=== PATIENT | female | born 1950 | race Hispanic/Latino ===

== ENCOUNTER 2016-12-28 13:50 | Emergency (ER) | payer MEDICARE ==
[2016-12-28] MEDS ORDERED: NORCO 5/325 PO ONE (16:33)
--- NOTE | 2016-12-28 17:24 | XRay Report ---
FINAL REPORT PROCEDURE: Right rib series TECHNIQUE: Unilateral rib radiographs, 3 views of the RIGHT ribs. HISTORY: Trauma. Fell. Pain. COMPARISON: No prior studies are available for comparison. FINDINGS: No displaced rib fractures are seen. Bone density appears normal. Visualized lung georges are clear. IMPRESSION: Negative exam. No displaced rib fractures are identified.
--- NOTE | 2016-12-28 17:47 | Emergency Department Report ---
Entered by LESLEY LYNN, acting as scribe for RAJI STUBBS PA. ED Fall HPI - General Chief Complaint: Fall Stated Complaint: FALL Source: patient Mode of arrival: Ambulatory Limitations: No Limitations - History of Present Illness Initial Comments: 66 year old female with a PMHx of HTN and arthritis presents to the ED c/o right flank pain that began 2 days ago. Patient states that she fell off a ground-level porch while helping her push a lawnmower. Rates pain an 8/ 10 in severity. Denies numbness, tingling, dysuria, hematuria, headache, dizziness, SOB, chest pain, nausea, and vomiting. Denies LOC at time of fall and head injury. Patient is ambulatory using a walker, and she was brought to the ED by her . NKDA. 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 denies: headache, neck pain, numbness, weakness, chest paint, shortness of breath, abdominal pain, hematuria, lightheaded, other (dysuria, hematuria, SOB, nausea, and vomiting) - Related Data Home Medications Medication Instructions Recorded Confirmed Last Taken Aspirin EC [Aspirin Enteric Coated 81 mg PO QDAY 12/15/15 12/15/15 12/14/15 TAB] Fexofenadine/Pseudoephedrine 1 each PO DAILY 12/15/15 12/15/15 12/14/15 [Savanah-D 12 Hour Tablet] Furosemide [Furosemide] 20 mg PO DAILY 12/15/15 12/15/15 12/14/15 Latanoprost [Latanoprost] 1 drop OP QHS 12/15/15 12/15/15 12/14/15 Leflunomide [Leflunomide] 10 mg PO DAILY 12/15/15 12/15/15 12/14/15 Lisinopril [Lisinopril] 40 mg PO DAILY 12/15/15 12/15/15 12/14/15 Metoprolol Tartrate [Metoprolol 12.5 mg PO BID 12/15/15 12/15/15 12/14/15 Tartrate] Multivit-Min/Iron/Folic/Lutein 1 each PO DAILY 12/15/15 12/15/15 12/14/15 [Centrum Silver Women Tablet] Pantoprazole [Protonix] 40 mg PO QDAY 12/15/15 12/15/15 1 Week Ago Potassium Gluconate 500 mg PO DAILY 12/15/15 12/15/15 12/14/15 Pravastatin Sodium [Pravastatin 40 mg PO DAILY 12/15/15 12/15/15 12/14/15 Sodium] Prednisone [predniSONE (Cristal) ER 5 mg PO QDAY 12/15/15 12/15/15 12/14/15 TAB] Ranolazine [Ranexa] 500 mg PO BID 12/15/15 12/15/15 12/14/15 Tramadol HCl [traMADol] 50 mg PO BID 12/15/15 12/15/15 12/14/15 Valacyclovir HCl [valACYclovir] 500 mg PO DAILY 12/15/15 12/15/15 12/14/15 cycloSPORINE [Restasis 0.05%] 1 drop OP BID 12/15/15 12/15/15 12/14/15 sulfaSALAzine [Sulfasalazine] 3 each PO BID 12/15/15 12/15/15 12/14/15 Previous Rx's Medication Instructions Recorded Last Taken Type Cyclobenzaprine HCl [Flexeril 5 MG 5 mg PO QHS #20 tab 12/28/16 Unknown Rx TAB] Naproxen [Naprosyn] 500 mg PO BID #30 tablet 12/28/16 Unknown Rx Allergies Allergy/AdvReac Type Severity Reaction Status Date / Time No Known Allergies Allergy Unverified 12/15/15 09:56 ED Review of Systems Comment: All other systems reviewed and negative Constitutional: denies: chills, fever, weakness, other (tingling) Respiratory: denies: cough, orthopnea, shortness of breath, SOB with exertion, SOB at rest, stridor, wheezing Cardiovascular: denies: chest pain, palpitations, dyspnea on exertion, orthopnea , syncope Gastrointestinal: denies: abdominal pain, nausea, vomiting Genitourinary: other (right flank pain). denies: dysuria, hematuria Musculoskeletal: denies: back pain Skin: other (3 cm ecchymosis on right flank). denies: rash Neurological: denies: headache, numbness ED Past Medical Hx - Past Medical History Previous Medical History?: Yes Hx Hypertension: Yes Hx Arthritis: Yes - Surgical History Past Surgical History?: Yes Hx Breast Surgery: Yes - Social History Smoking Status: Never Smoker Substance Use Type: None - Medications Home Medications: Home Medications Medication Instructions Recorded Confirmed Last Taken Type Aspirin EC [Aspirin Enteric Coated 81 mg PO QDAY 12/15/15 12/15/15 12/14/15 History TAB] Fexofenadine/Pseudoephedrine 1 each PO DAILY 12/15/15 12/15/15 12/14/15 History [Savanah-D 12 Hour Tablet] Furosemide [Furosemide] 20 mg PO DAILY 12/15/15 12/15/15 12/14/15 History Latanoprost [Latanoprost] 1 drop OP QHS 12/15/15 12/15/15 12/14/15 History Leflunomide [Leflunomide] 10 mg PO DAILY 12/15/15 12/15/15 12/14/15 History Lisinopril [Lisinopril] 40 mg PO DAILY 12/15/15 12/15/15 12/14/15 History Metoprolol Tartrate [Metoprolol 12.5 mg PO BID 12/15/15 12/15/15 12/14/15 History Tartrate] Multivit-Min/Iron/Folic/Lutein 1 each PO DAILY 12/15/15 12/15/15 12/14/15 History [Centrum Silver Women Tablet] Pantoprazole [Protonix] 40 mg PO QDAY 12/15/15 12/15/15 1 Week Ago History Potassium Gluconate 500 mg PO DAILY 12/15/15 12/15/15 12/14/15 History Pravastatin Sodium [Pravastatin 40 mg PO DAILY 12/15/15 12/15/15 12/14/15 History Sodium] Prednisone [predniSONE (Cristal) ER 5 mg PO QDAY 12/15/15 12/15/15 12/14/15 History TAB] Ranolazine [Ranexa] 500 mg PO BID 12/15/15 12/15/15 12/14/15 History Tramadol HCl [traMADol] 50 mg PO BID 12/15/15 12/15/15 12/14/15 History Valacyclovir HCl [valACYclovir] 500 mg PO DAILY 12/15/15 12/15/15 12/14/15 History cycloSPORINE [Restasis 0.05%] 1 drop OP BID 12/15/15 12/15/15 12/14/15 History sulfaSALAzine [Sulfasalazine] 3 each PO BID 12/15/15 12/15/15 12/14/15 History Cyclobenzaprine HCl [Flexeril 5 MG 5 mg PO QHS #20 tab 12/28/16 Unknown Rx TAB] Naproxen [Naprosyn] 500 mg PO BID #30 tablet 12/28/16 Unknown Rx ED Physical Exam - General Limitations: Physical Limitation General appearance: alert, in no apparent distress - Head Head exam: Present: atraumatic, normocephalic - Eye Eye exam: Present: normal appearance, EOMI Pupils: Present: normal accommodation - ENT ENT exam: Present: normal exam, mucous membranes moist - Neck Neck exam: Present: normal inspection, full ROM. Absent: lymphadenopathy - Respiratory Respiratory exam: Present: normal lung sounds bilaterally. Absent: respiratory distress, wheezes, rales, rhonchi, stridor - Cardiovascular Cardiovascular Exam: Present: regular rate, normal rhythm. Absent: systolic murmur, diastolic murmur, rubs, gallop - GI/Abdominal GI/Abdominal exam: Present: soft, normal bowel sounds - Extremities Exam Extremities exam: Present: normal inspection, full ROM - Back Exam Back exam: Present: normal inspection, full ROM, CVA tenderness (R), other (3 cm ecchymosis on right flank area) - Neurological Exam Neurological exam: Present: alert, oriented X3 - Psychiatric Psychiatric exam: Present: normal affect, normal mood - Skin Skin exam: Present: warm, dry, intact, ecchymosis (3 cm ecchymosis on right flank area). Absent: rash ED Course Vital Signs 12/28/16 12/28/16 14:35 16:37 Temperature 97.9 F Pulse Rate 57 L Respiratory 18 18 Rate Blood Pressure 142/70 O2 Sat by Pulse 100 Oximetry ED Medical Decision Making - Radiology Data Radiology results: report reviewed, image reviewed FINAL REPORT PROCEDURE: Right rib series TECHNIQUE: Unilateral rib radiographs, 3 views of the RIGHT ribs. HISTORY: Trauma. Fell. Pain. COMPARISON: No prior studies are available for comparison. FINDINGS: No displaced rib fractures are seen. Bone density appears normal. Visualized lung georges are clear. IMPRESSION: Negative exam. No displaced rib fractures are identified. Transcribed By: FLYNN Dictated By: AIDEE PIERRE MD Electronically Authenticated By: AIDEE PIERRE MD Signed Date/Time: 12/28/16 1720 - Medical Decision Making 66-year-old female presents status post fall. ED course: Patient received a bolus of [place] for pain. Rib detail x-ray ordered. Rib detail x-ray normal no acute fracture or abnormalities. I discussed findings with patient. Discussed with patient to follow up with primary care physician. Vital signs are normal she is not in any acute distress. Discussed the patient is any worsening symptoms to return to ED. Verbalization understands and will comply to follow-up with her primary care ED Disposition Clinical Impression: Fall at home Qualifiers: Encounter type: initial encounter Qualified Code(s): W19.XXXA - Unspecified fall, initial encounter; Y92.099 - Unspecified place in other non-institutional residence as the place of occurrence of the external cause Contusion Qualifiers: Encounter type: initial encounter Contusion area: lower back Qualified Code(s) : S30.0XXA - Contusion of lower back and pelvis, initial encounter Disposition: DISCHARGED TO HOME OR SELFCARE Is pt being admited?: No Does the pt Need Aspirin: No Condition: Stable Instructions: Fall Prevention for Older Adults (ED), Contusion in Adults (ED), Fall Prevention (ED) Additional Instructions: Follow-up which her primary care physician. Take your medications as prescribed Return to ED if any new or worsening symptoms. Prescriptions: Cyclobenzaprine HCl [Flexeril 5 MG TAB] 5 mg PO QHS #20 tab Naproxen [Naprosyn] 500 mg PO BID #30 tablet Referrals: JACEY HIDALGO MD [Primary Care Provider] - 3-5 Days Forms: Accompanied Note, Work/School Release Form(ED) Time of Disposition: 16:56 This documentation as recorded by the SHANE quesada JASMINE,accurately reflects the service I personally performed and the decisions made by me,RAJI STUBBS PA.
[2016-12-28 17:58] VITALS: BP 103/62
== END 2016-12-28 17:58 | disposition home or self-care (01) ==
LOC: ED 13:50
DX: S30.0XXA Contusion of lower back and pelvis, initial encounter (principal); I10 Essential (primary) hypertension; M19.90 Unspecified osteoarthritis, unspecified site; Z79.82 Long term (current) use of aspirin; W19.XXXA Unspecified fall, initial encounter; Y93.89 Activity, other specified; Y99.9 Unspecified external cause status; Y92.099 Unspecified place in other non-institutional residence as the place of occurrence of the external cause
CPT/HCPCS: 99283

== ENCOUNTER 2017-08-02 12:48 | Inpatient (IN) | payer MEDICARE ==
[2017-08-02 13:26] LABS: Basophils % (Auto) 0.1 % (0.0-1.8); Hematocrit 37.9 % (30.3-42.9); Hemoglobin 12.4 gm/dl (10.1-14.3); Mean Corpuscular HGB Conc 33 % (30-34); Mean Corpuscular Hemoglobin 30 pg (28-32); Mean Corpuscular Volume 93 fl (79-97); Platelet Count 241 K/mm3 (140-440); Red Blood Count 4.09 M/mm3 (3.65-5.03); Red Cell Distribution Width 14.2 % (13.2-15.2); White Blood Count 16.6 K/mm3 (4.5-11.0)
[2017-08-02 13:44] LABS: Anion Gap 22 mmol/L; BUN/Creatinine Ratio 29; Blood Urea Nitrogen 47 mg/dL (7-17); Calcium 10.1 mg/dL (8.4-10.2); Carbon Dioxide 24 mmol/L (22-30); Chloride 100.5 mmol/L (98-107); Glucose 112 mg/dL (65-100); Sodium 142 mmol/L (137-145)
[2017-08-02] MEDS ORDERED: NACL 0.9% 1000 ML 1,000 ML IV ONE (22:09)
[2017-08-02 23:58] LABS: Creatine Kinase 42 units/L (30-135); Creatine Kinase MB 1.7 ng/mL (0.0-4.0)
--- NOTE | 2017-08-03 00:08 | XRay Report ---
FINAL REPORT PROCEDURE: XR CHEST ROUTINE 2V TECHNIQUE: A portable AP chest radiograph was obtained at 08/02/2017 22:39 (EST) . CPT 22110 HISTORY: CHEST PAIN COMPARISON: No prior studies are available for comparison. FINDINGS: Heart: Heart is borderline enlarged.. Mediastinum/Vessels: There is calcified plaque in the thoracic aorta.. Lungs/Pleural space: There are no infiltrates, effusions or pneumothoraces per. Bony thorax: No acute osseous abnormality. There are old healed fractures of right ribs numbers 8 and 9. Life support devices: None. IMPRESSION: No acute cardiopulmonary abnormality.
--- NOTE | 2017-08-03 02:14 | Emergency Department Report ---
ED Chest Pain HPI - General Chief Complaint: Chest Pain Stated Complaint: CHEST AND BACK PAIN Time Seen by Provider: 08/02/17 22:07 Source: patient Mode of arrival: Ambulatory Limitations: No Limitations - History of Present Illness Initial Comments: 66 YO FEMALE WITH CHIEF C/O RETROSTERNAL CHEST PAIN SINCE YESTERDAY WITH PAIN ON INSPIRATION AND ACHING 8/10 PAIN. SHE ALSO HAS PAIN IN THE LOWER BACK WHICH IS CHRONIC BUT HAD SUBSIDED BUT STARTED UP AGAIN. SHE ALSO C/O THROAT PAIN, COUGH AND FEELING S THOUGH HER THROAT WAS CLOSING. MD Complaint: chest pain -: Gradual, days(s) (1) Onset: during rest Pain Location: substernal Severity scale (0 -10): 8 Quality: aching, sharp Consistency: intermittent Improves With: nothing Worsens With: inspiration - Related Data Home Medications Medication Instructions Recorded Confirmed Last Taken Aspirin EC [Aspirin Enteric Coated 81 mg PO QDAY 12/15/15 12/15/15 12/14/15 TAB] Fexofenadine/Pseudoephedrine 1 each PO DAILY 12/15/15 12/15/15 12/14/15 [Savanah-D 12 Hour Tablet] Furosemide [Furosemide] 20 mg PO DAILY 12/15/15 12/15/15 12/14/15 Latanoprost [Latanoprost] 1 drop OP QHS 12/15/15 12/15/15 12/14/15 Leflunomide [Leflunomide] 10 mg PO DAILY 12/15/15 12/15/15 12/14/15 Lisinopril [Lisinopril] 40 mg PO DAILY 12/15/15 12/15/15 12/14/15 Metoprolol Tartrate [Metoprolol 12.5 mg PO BID 12/15/15 12/15/15 12/14/15 Tartrate] Multivit-Min/Iron/Folic/Lutein 1 each PO DAILY 12/15/15 12/15/15 12/14/15 [Centrum Silver Women Tablet] Pantoprazole [Protonix] 40 mg PO QDAY 12/15/15 12/15/15 1 Week Ago ~12/08/15 Potassium Gluconate 500 mg PO DAILY 12/15/15 12/15/15 12/14/15 Pravastatin Sodium [Pravastatin 40 mg PO DAILY 12/15/15 12/15/15 12/14/15 Sodium] Prednisone [predniSONE (Cristal) ER 5 mg PO QDAY 12/15/15 12/15/15 12/14/15 TAB] Ranolazine [Ranexa] 500 mg PO BID 12/15/15 12/15/15 12/14/15 Tramadol HCl [traMADol] 50 mg PO BID 12/15/15 12/15/15 12/14/15 Valacyclovir HCl [valACYclovir] 500 mg PO DAILY 12/15/15 12/15/15 12/14/15 cycloSPORINE [Restasis 0.05%] 1 drop OP BID 12/15/15 12/15/15 12/14/15 sulfaSALAzine [Sulfasalazine] 3 each PO BID 12/15/15 12/15/15 12/14/15 Previous Rx's Medication Instructions Recorded Last Taken Type Cyclobenzaprine HCl [Flexeril 5 MG 5 mg PO QHS #20 tab 12/28/16 Unknown Rx TAB] Naproxen [Naprosyn] 500 mg PO BID #30 tablet 12/28/16 Unknown Rx Allergies Allergy/AdvReac Type Severity Reaction Status Date / Time No Known Allergies Allergy Verified 08/02/17 13:06 Heart Score - HEART Score History: Slightly suspicious EKG: Non-specific Age: > 65 Risk factors: 1-2 risk factors Troponin: < normal limit HEART Score: 4 ED Review of Systems ROS: Stated complaint: CHEST AND BACK PAIN Other details as noted in HPI ED Past Medical Hx - Past Medical History Previous Medical History?: Yes Hx Hypertension: Yes Hx Arthritis: Yes - Surgical History Hx Breast Surgery: Yes - Social History Smoking Status: Never Smoker Substance Use Type: None - Medications Home Medications: Home Medications Medication Instructions Recorded Confirmed Last Taken Type Aspirin EC [Aspirin Enteric Coated 81 mg PO QDAY 12/15/15 12/15/15 12/14/15 History TAB] Fexofenadine/Pseudoephedrine 1 each PO DAILY 12/15/15 12/15/15 12/14/15 History [Savanah-D 12 Hour Tablet] Furosemide [Furosemide] 20 mg PO DAILY 12/15/15 12/15/15 12/14/15 History Latanoprost [Latanoprost] 1 drop OP QHS 12/15/15 12/15/15 12/14/15 History Leflunomide [Leflunomide] 10 mg PO DAILY 12/15/15 12/15/15 12/14/15 History Lisinopril [Lisinopril] 40 mg PO DAILY 12/15/15 12/15/15 12/14/15 History Metoprolol Tartrate [Metoprolol 12.5 mg PO BID 12/15/15 12/15/15 12/14/15 History Tartrate] Multivit-Min/Iron/Folic/Lutein 1 each PO DAILY 12/15/15 12/15/15 12/14/15 History [Centrum Silver Women Tablet] Pantoprazole [Protonix] 40 mg PO QDAY 12/15/15 12/15/15 1 Week Ago History ~12/08/15 Potassium Gluconate 500 mg PO DAILY 12/15/15 12/15/15 12/14/15 History Pravastatin Sodium [Pravastatin 40 mg PO DAILY 12/15/15 12/15/15 12/14/15 History Sodium] Prednisone [predniSONE (Cristal) ER 5 mg PO QDAY 12/15/15 12/15/15 12/14/15 History TAB] Ranolazine [Ranexa] 500 mg PO BID 12/15/15 12/15/15 12/14/15 History Tramadol HCl [traMADol] 50 mg PO BID 12/15/15 12/15/15 12/14/15 History Valacyclovir HCl [valACYclovir] 500 mg PO DAILY 12/15/15 12/15/15 12/14/15 History cycloSPORINE [Restasis 0.05%] 1 drop OP BID 12/15/15 12/15/15 12/14/15 History sulfaSALAzine [Sulfasalazine] 3 each PO BID 12/15/15 12/15/15 12/14/15 History Cyclobenzaprine HCl [Flexeril 5 MG 5 mg PO QHS #20 tab 12/28/16 Unknown Rx TAB] Naproxen [Naprosyn] 500 mg PO BID #30 tablet 12/28/16 Unknown Rx ED Physical Exam - General Limitations: No Limitations ED Course Vital Signs 08/02/17 08/02/17 08/02/17 13:06 16:44 17:06 Temperature 98.6 F 99.1 F Pulse Rate 90 85 Respiratory 18 18 Rate Blood Pressure 104/56 101/65 Blood Pressure [Right] O2 Sat by Pulse 100 89 Oximetry 08/02/17 08/02/17 08/02/17 17:16 17:20 17:26 Temperature Pulse Rate 72 66 70 Respiratory 20 14 16 Rate Blood Pressure 129/102 147/84 147/84 Blood Pressure [Right] O2 Sat by Pulse 96 97 96 Oximetry 08/02/17 08/02/17 08/02/17 17:30 17:36 17:40 Temperature Pulse Rate 66 65 65 Respiratory 16 15 15 Rate Blood Pressure 147/84 132/82 132/82 Blood Pressure [Right] O2 Sat by Pulse 96 97 98 Oximetry 08/02/17 08/02/17 08/02/17 17:45 17:50 17:56 Temperature Pulse Rate 69 66 69 Respiratory 18 15 13 Rate Blood Pressure 137/91 137/91 137/91 Blood Pressure [Right] O2 Sat by Pulse 94 95 96 Oximetry 08/02/17 08/02/17 08/02/17 18:00 18:06 18:10 Temperature Pulse Rate 73 72 74 Respiratory 14 17 16 Rate Blood Pressure 137/91 134/83 134/83 Blood Pressure [Right] O2 Sat by Pulse 93 95 95 Oximetry 08/02/17 08/02/17 08/02/17 18:15 18:20 20:10 Temperature Pulse Rate 75 72 80 Respiratory 19 17 24 Rate Blood Pressure 137/93 137/93 137/93 Blood Pressure [Right] O2 Sat by Pulse 97 92 93 Oximetry 08/02/17 08/02/17 08/02/17 20:15 20:21 20:25 Temperature Pulse Rate 79 79 81 Respiratory 20 21 20 Rate Blood Pressure 111/56 111/56 111/56 Blood Pressure [Right] O2 Sat by Pulse 94 93 94 Oximetry 08/02/17 08/02/17 08/02/17 20:30 20:35 20:41 Temperature Pulse Rate 83 81 81 Respiratory 20 21 21 Rate Blood Pressure 122/59 122/59 122/59 Blood Pressure [Right] O2 Sat by Pulse 95 94 94 Oximetry 08/02/17 08/02/17 08/02/17 20:45 20:51 20:55 Temperature Pulse Rate 78 78 78 Respiratory 18 19 20 Rate Blood Pressure 115/52 115/52 115/52 Blood Pressure [Right] O2 Sat by Pulse 93 94 94 Oximetry 08/02/17 08/02/17 08/02/17 21:00 21:05 21:11 Temperature Pulse Rate 78 79 82 Respiratory 19 18 23 Rate Blood Pressure 107/55 107/55 107/55 Blood Pressure [Right] O2 Sat by Pulse 93 94 94 Oximetry 08/02/17 08/02/17 08/02/17 21:13 21:14 21:15 Temperature 98.9 F Pulse Rate 82 82 Respiratory 25 H 25 H 19 Rate Blood Pressure 123/59 Blood Pressure 103/62 [Right] O2 Sat by Pulse 95 95 Oximetry 08/02/17 08/02/17 08/02/17 21:25 21:30 22:14 Temperature Pulse Rate 83 82 81 Respiratory 21 20 18 Rate Blood Pressure 122/62 122/62 Blood Pressure [Right] O2 Sat by Pulse 95 93 93 Oximetry 08/02/17 08/02/17 08/02/17 22:16 22:18 22:20 Temperature Pulse Rate 82 82 81 Respiratory 19 20 18 Rate Blood Pressure 109/58 109/58 109/58 Blood Pressure [Right] O2 Sat by Pulse 94 93 93 Oximetry 08/02/17 08/02/17 08/02/17 22:22 22:24 22:26 Temperature Pulse Rate 81 82 82 Respiratory 19 18 18 Rate Blood Pressure 109/58 109/58 109/58 Blood Pressure [Right] O2 Sat by Pulse 93 93 92 Oximetry 08/02/17 08/02/17 08/02/17 22:28 22:30 22:32 Temperature Pulse Rate 81 81 82 Respiratory 19 19 20 Rate Blood Pressure 109/58 107/56 107/56 Blood Pressure [Right] O2 Sat by Pulse 93 91 93 Oximetry 08/02/17 08/02/17 08/02/17 22:34 22:36 22:38 Temperature Pulse Rate 83 86 84 Respiratory 21 20 20 Rate Blood Pressure 107/56 107/56 107/56 Blood Pressure [Right] O2 Sat by Pulse 93 92 94 Oximetry 08/02/17 08/02/17 08/02/17 22:40 22:42 22:44 Temperature Pulse Rate 85 86 86 Respiratory 14 14 21 Rate Blood Pressure 107/56 107/56 109/58 Blood Pressure [Right] O2 Sat by Pulse 93 94 93 Oximetry 08/02/17 08/02/17 08/02/17 22:46 22:48 22:50 Temperature Pulse Rate 85 85 84 Respiratory 18 21 20 Rate Blood Pressure 109/59 109/59 109/59 Blood Pressure [Right] O2 Sat by Pulse 94 92 93 Oximetry 08/02/17 08/02/17 08/02/17 22:52 22:54 22:56 Temperature Pulse Rate 92 H 84 85 Respiratory 21 17 19 Rate Blood Pressure 109/59 109/59 109/59 Blood Pressure [Right] O2 Sat by Pulse 94 89 93 Oximetry 08/02/17 08/02/17 08/02/17 22:58 23:00 23:02 Temperature Pulse Rate 84 84 84 Respiratory 21 20 22 Rate Blood Pressure 109/59 104/45 104/45 Blood Pressure [Right] O2 Sat by Pulse 92 90 91 Oximetry 08/02/17 08/02/17 08/02/17 23:04 23:06 23:08 Temperature Pulse Rate 84 85 83 Respiratory 17 14 16 Rate Blood Pressure 104/45 104/45 104/45 Blood Pressure [Right] O2 Sat by Pulse 90 90 91 Oximetry 08/02/17 08/02/17 08/02/17 23:10 23:12 23:14 Temperature Pulse Rate 82 82 83 Respiratory 22 20 14 Rate Blood Pressure 104/45 104/45 107/56 Blood Pressure [Right] O2 Sat by Pulse 92 92 90 Oximetry 08/02/17 08/02/17 08/02/17 23:16 23:18 23:20 Temperature Pulse Rate 85 82 86 Respiratory 16 23 19 Rate Blood Pressure 112/47 112/47 112/47 Blood Pressure [Right] O2 Sat by Pulse 92 92 93 Oximetry 08/03/17 08/03/17 08/03/17 00:34 00:36 00:38 Temperature Pulse Rate 86 83 83 Respiratory 23 22 19 Rate Blood Pressure 127/67 127/67 127/67 Blood Pressure [Right] O2 Sat by Pulse 94 98 Oximetry 08/03/17 08/03/17 08/03/17 00:40 00:42 00:44 Temperature Pulse Rate 79 79 80 Respiratory 21 22 19 Rate Blood Pressure 127/67 127/67 127/67 Blood Pressure [Right] O2 Sat by Pulse 98 98 99 Oximetry 08/03/17 08/03/17 08/03/17 00:46 00:48 00:50 Temperature Pulse Rate 79 80 78 Respiratory 19 19 20 Rate Blood Pressure 127/67 127/67 127/67 Blood Pressure [Right] O2 Sat by Pulse 99 99 99 Oximetry 08/03/17 08/03/17 08/03/17 00:52 00:54 00:56 Temperature Pulse Rate 85 83 80 Respiratory 24 30 H 22 Rate Blood Pressure 127/67 127/67 127/67 Blood Pressure [Right] O2 Sat by Pulse 99 97 99 Oximetry 08/03/17 08/03/17 08/03/17 00:58 01:00 01:02 Temperature Pulse Rate 82 81 81 Respiratory 22 21 21 Rate Blood Pressure 127/67 134/66 134/66 Blood Pressure [Right] O2 Sat by Pulse 100 99 100 Oximetry 08/03/17 08/03/17 08/03/17 01:04 01:06 01:10 Temperature Pulse Rate 81 78 80 Respiratory 21 20 15 Rate Blood Pressure 134/66 134/66 112/47 Blood Pressure [Right] O2 Sat by Pulse 99 99 100 Oximetry 08/03/17 08/03/17 08/03/17 01:16 01:20 01:26 Temperature Pulse Rate 81 80 87 Respiratory 19 18 21 Rate Blood Pressure 112/47 112/47 112/47 Blood Pressure [Right] O2 Sat by Pulse 100 100 97 Oximetry 08/03/17 08/03/17 08/03/17 01:40 04:20 04:22 Temperature Pulse Rate 97 H 84 85 Respiratory 24 21 19 Rate Blood Pressure 123/70 118/62 118/62 Blood Pressure [Right] O2 Sat by Pulse 92 96 96 Oximetry 08/03/17 08/03/17 08/03/17 04:24 04:26 04:28 Temperature Pulse Rate 84 86 82 Respiratory 19 18 18 Rate Blood Pressure 118/62 118/62 118/62 Blood Pressure [Right] O2 Sat by Pulse 97 97 97 Oximetry 08/03/17 08/03/17 08/03/17 04:30 04:32 04:34 Temperature Pulse Rate 86 87 89 Respiratory 21 20 21 Rate Blood Pressure 118/62 118/62 118/62 Blood Pressure [Right] O2 Sat by Pulse 96 97 97 Oximetry 08/03/17 08/03/17 08/03/17 04:36 04:38 04:40 Temperature Pulse Rate 87 89 86 Respiratory 19 21 19 Rate Blood Pressure 118/62 118/62 126/61 Blood Pressure [Right] O2 Sat by Pulse 96 96 97 Oximetry 08/03/17 08/03/17 08/03/17 04:42 04:44 04:46 Temperature Pulse Rate 86 84 85 Respiratory 19 20 19 Rate Blood Pressure 126/61 126/61 126/61 Blood Pressure [Right] O2 Sat by Pulse 97 97 97 Oximetry 08/03/17 08/03/17 08/03/17 04:48 04:50 04:52 Temperature Pulse Rate 85 84 85 Respiratory 18 19 19 Rate Blood Pressure 126/61 126/61 126/61 Blood Pressure [Right] O2 Sat by Pulse 97 97 97 Oximetry 08/03/17 08/03/17 08/03/17 04:54 04:56 04:58 Temperature Pulse Rate 84 87 83 Respiratory 20 16 20 Rate Blood Pressure 118/62 118/62 118/62 Blood Pressure [Right] O2 Sat by Pulse 97 96 97 Oximetry 08/03/17 08/03/17 08/03/17 05:00 05:02 05:04 Temperature Pulse Rate 85 83 82 Respiratory 19 19 19 Rate Blood Pressure 132/57 132/57 132/57 Blood Pressure [Right] O2 Sat by Pulse 97 97 97 Oximetry 08/03/17 08/03/17 08/03/17 05:06 05:08 05:10 Temperature Pulse Rate 82 82 82 Respiratory 19 19 17 Rate Blood Pressure 132/57 132/57 132/57 Blood Pressure [Right] O2 Sat by Pulse 98 97 98 Oximetry 08/03/17 08/03/17 08/03/17 05:12 05:14 05:16 Temperature Pulse Rate 84 82 84 Respiratory 18 19 17 Rate Blood Pressure 132/57 132/57 132/57 Blood Pressure [Right] O2 Sat by Pulse 97 98 97 Oximetry 08/03/17 08/03/17 08/03/17 05:18 05:20 05:22 Temperature Pulse Rate 83 83 84 Respiratory 18 17 17 Rate Blood Pressure 132/57 120/57 120/57 Blood Pressure [Right] O2 Sat by Pulse 98 98 97 Oximetry 08/03/17 08/03/17 08/03/17 05:24 05:26 05:28 Temperature Pulse Rate 84 84 84 Respiratory 17 18 18 Rate Blood Pressure 120/57 120/57 120/57 Blood Pressure [Right] O2 Sat by Pulse 97 97 97 Oximetry 08/03/17 08/03/17 08/03/17 05:30 05:32 05:34 Temperature Pulse Rate 82 82 83 Respiratory 18 17 16 Rate Blood Pressure 120/57 120/57 120/57 Blood Pressure [Right] O2 Sat by Pulse 97 97 97 Oximetry 08/03/17 08/03/17 08/03/17 05:36 05:38 05:40 Temperature Pulse Rate 84 83 83 Respiratory 17 16 17 Rate Blood Pressure 120/57 120/57 116/60 Blood Pressure [Right] O2 Sat by Pulse 97 97 97 Oximetry 08/03/17 08/03/17 08/03/17 05:42 05:44 05:46 Temperature Pulse Rate 83 82 85 Respiratory 16 16 16 Rate Blood Pressure 116/60 116/60 116/60 Blood Pressure [Right] O2 Sat by Pulse 97 97 97 Oximetry 08/03/17 08/03/17 08/03/17 05:48 05:50 05:52 Temperature Pulse Rate 84 84 85 Respiratory 17 17 16 Rate Blood Pressure 116/60 116/60 116/60 Blood Pressure [Right] O2 Sat by Pulse 97 97 97 Oximetry 08/03/17 08/03/17 08/03/17 05:54 05:56 05:58 Temperature Pulse Rate 82 83 84 Respiratory 17 17 18 Rate Blood Pressure 116/60 116/60 116/60 Blood Pressure [Right] O2 Sat by Pulse 98 98 98 Oximetry ELLIOT score - Elliot Score Age > 65: (1) Yes Aspirin use within the Past 7 Days: (0) No 3 or more CAD Risk Factors: (0) No 2 or more Angina events in past 24 hrs: (0) No Known CAD with more than 50% Stenosis: (0) No Elevated Cardiac Markers: (0) No ST Deviation Greater than 0.5mm: (0) No ELLIOT Score: 1 ED Medical Decision Making - Lab Data Result diagrams: 08/02/17 13:14 08/02/17 13:14 - EKG Data -: EKG Interpreted by Ia EKG shows normal: sinus rhythm (LOW VOLTAGE IN EXTREMITY AND PRECORDIAL LEADS), axis, intervals Rate: normal - EKG Data When compared to previous EKG there are: no significant change - Radiology Data Radiology results: report reviewed (CXR:NEGATIVE) Critical care attestation.: If time is entered above; I have spent that time in minutes in the direct care of this critically ill patient, excluding procedure time. ED Disposition Clinical Impression: Chest pain Qualifiers: Chest pain type: unspecified Qualified Code(s): R07.9 - Chest pain, unspecified Disposition: 09 OP ADMIT IP TO THIS HOSP Is pt being admited?: Yes Condition: Stable Instructions: Chest Pain (ED) Referrals: PRIMARY CARE,MD [Primary Care Provider] - 3-5 Days Time of Disposition: 07:19 (CASE REVIEWED WITH SHANIA WHO WILL ADMIT HER TO THE HOSPITAL)
[2017-08-03 02:40] LABS: Bilirubin,Urine NEG (Negative); Blood,Urine NEG (Negative); Ketones,Urine 20 mg/dL (Negative); Leukocyte Esterase,Urine TR (Negative); Mucus,Urine FEW /HPF; Nitrite,Urine NEG (Negative); Urobilinogen,Urine < 2.0 mg/dL (<2.0)
[2017-08-03] MEDS ORDERED: XYLOCAINE 1% MPF 5 mL INFILTRATI ONE (04:10)
[2017-08-03] MEDS ORDERED: TORADOL IV ONE (04:11)
[2017-08-03] MEDS ORDERED: ROCEPHIN 1 GM in NACL 0.9% 20 ML IV ONE (04:30)
[2017-08-03] MEDS ORDERED: ROCEPHIN 1,000 MG in NACL 0.9% 50 ML IV NR (05:00)
[2017-08-03] MEDS ORDERED: ASPIRIN PO ONE (07:18)
--- NOTE | 2017-08-03 09:17 | Nuclear Medicine Report ---
LUNG SCAN, VENTILATION AND PERFUSION: History: Chest pain. Technique: 5mci of Tc99m MAA was infused for the perfusion images. 15mci XE 133 gas was inhaled for the ventilatory images. Correlation is made with a chest x-ray dated 08/02/17 at 2327 hrs. Findings: Inhalation of Xenon gas demonstrates a normal distribution of the activity throughout both lungs. The wash out phases show no focal retention of activity. After injection of Technetium 99m macroaggregated albumin gamma camera imaging of the lungs in multiple projections demonstrates normal pulmonary contours with a homogeneous distribution of activity. No focal areas of perfusion deficiency are identified. IMPRESSION: Low probability for pulmonary embolus.
[2017-08-03] MEDS ORDERED: CEPACOL X STRENGTH MM PRN (10:16)
--- NOTE | 2017-08-03 10:17 | History and Physical Report ---
<SHANIA DURAND - Last Filed: 08/03/17 15:16> History of Present Illness Date of examination: 08/03/17 Date of admission: 08/03/17 08:12 Chief complaint: Chest pain, cough and sore throat History of present illness: Patient is a 66 years old female with past medical history of hypertension and arthritis, who presents to emergency department for chief complaints of chest pain, cough and sore throat. She states that the pain began 4 days ago intermittent retrosternal chest pain with inspiration, coughing and sore throat. Patient described the pain as, sharp, pressure and tightness in his chest; that radiates to the back. The sharp pain lasted around 3 seconds. Coughing aggravate the pain and alleviate by rest. The painful episodes did not increase in intensity or severity during this time. Patient denies chest pain at present time. She denies nausea, vomiting during these episodes of pain. She experienced shortness of breath and diaphoresis during these episodes of pain. She continued to have several episodes of the pain throughout the morning, she decided to come to the emergency department. Past History Past Medical History: hypertension, other (arthritis,) Past Surgical History: No surgical history, Other Social history: denies: smoking, alcohol abuse Family history: hypertension Medications and Allergies Allergies Allergy/AdvReac Type Severity Reaction Status Date / Time No Known Allergies Allergy Verified 08/02/17 13:06 Home Medications Medication Instructions Recorded Confirmed Last Taken Type Aspirin EC [Aspirin Enteric Coated 81 mg PO QDAY 12/15/15 08/03/17 12/14/15 History TAB] Fexofenadine/Pseudoephedrine 1 each PO DAILY 12/15/15 08/03/17 12/14/15 History [Savanah-D 12 Hour Tablet] Furosemide [Furosemide] 20 mg PO DAILY 12/15/15 08/03/17 12/14/15 History Lisinopril [Lisinopril] 20 mg PO DAILY 12/15/15 08/03/17 12/14/15 History Metoprolol Tartrate [Metoprolol 12.5 mg PO BID 12/15/15 08/03/17 12/14/15 History Tartrate] Multivit-Min/Iron/Folic/Lutein 1 each PO DAILY 12/15/15 08/03/17 12/14/15 History [Centrum Silver Women Tablet] Pantoprazole [Protonix] 40 mg PO QDAY 12/15/15 08/03/17 1 Week Ago History ~12/08/15 Potassium Gluconate 500 mg PO DAILY 12/15/15 08/03/17 12/14/15 History Ranolazine [Ranexa] 500 mg PO BID 12/15/15 08/03/17 12/14/15 History cycloSPORINE [Restasis 0.05%] 1 drop OP BID 12/15/15 08/03/17 12/14/15 History Active Meds: Active Medications Aspirin (Aspirin) 325 mg PO QDAY [facility] Furosemide (Lasix) 20 mg PO DAILY [facility] Heparin Sodium (Porcine) (Heparin) 5,000 unit SUB-Q Q12HR [facility] Ceftriaxone Sodium 1 gm/ (Sodium Chloride) 20 mls @ 20 mls/10 min IV Q24HR [facility] PRN Reason: Protocol Lisinopril (Zestril) 20 mg PO DAILY [facility] Metoprolol Tartrate (Lopressor) 12.5 mg PO BID [facility] Miscellaneous Medication (Cyclosporine [Restasis 0.05%]) 1 drop OP BID [facility] Miscellaneous Medication (Fexofenadine/Pseudoephedrine [Savanah-D 12 Hour Tablet ]) 1 each PO DAILY [facility] Miscellaneous Medication (Multivit-Min/Iron/Folic/Lutein [Centrum Silver Women Tablet]) 1 each PO DAILY [facility] Miscellaneous Medication (Potassium Gluconate [Potassium Gluconate]) 500 mg PO DAILY [facility] Pantoprazole Sodium (Protonix) 40 mg PO QDAY [facility] Ranolazine (Ranexa Er) 500 mg PO BID [facility] Review of Systems Constitutional: weakness, malaise, no weight loss, no weight gain, no fever, no chills Ears, nose, mouth and throat: no nasal congestion, no nasal discharge Cardiovascular: chest pain, shortness of breath, no dyspnea on exertion, no paroxysmal nocturnal dyspnea Respiratory: shortness of breath, dyspnea on exertion Gastrointestinal: no nausea, no vomiting, no diarrhea Genitourinary Female: no pelvic pain, no flank pain, no menorrhagia Rectal: no incontinence, no bleeding Musculoskeletal: no shooting arm pain, no arm numbness/tingling, no low back pain Integumentary: no redness, no sores, no wounds Neurological: no parathesias, no numbness, no tingling, no seizures Psychiatric: no insomnia, no hypersomnia, no change in appetite, no change in libido Endocrine: no polydipsia, no polyuria, no nocturia Hematologic/Lymphatic: no easy bruising, no easy bleeding Allergic/Immunologic: no urticaria, no allergic rhinitis Exam - Constitutional Vitals: Temp Pulse Resp BP Pulse Ox 98.0 F 90 14 126/60 95 08/03/17 07:09 08/03/17 07:46 08/03/17 07:46 08/03/17 08:00 08/03/17 07:46 General appearance: Present: no acute distress - EENT Eyes: Present: PERRL ENT: hearing intact, other (sore throat) - Neck Neck: Present: supple, other - Respiratory Respiratory effort: normal Respiratory: bilateral: CTA - Cardiovascular Rhythm: regular Heart Sounds: Present: S1 & S2 - Abdominal General gastrointestinal: Present: soft, non-tender - Integumentary Integumentary: Present: clear, warm, dry - Musculoskeletal Musculoskeletal: strength equal bilaterally - Psychiatric Psychiatric: appropriate mood/affect - Neurologic Neurologic: moves all extremities - Allied Health Allied health notes reviewed: nursing Results - Labs CBC & Chem 7: 08/02/17 13:14 08/02/17 13:14 Labs: Laboratory Last Values WBC 16.6 K/mm3 (4.5-11.0) H 08/02/17 13:14 RBC 4.09 M/mm3 (3.65-5.03) 08/02/17 13:14 Hgb 12.4 gm/dl (10.1-14.3) 08/02/17 13:14 Hct 37.9 % (30.3-42.9) 08/02/17 13:14 MCV 93 fl (79-97) 08/02/17 13:14 MCH 30 pg (28-32) 08/02/17 13:14 MCHC 33 % (30-34) 08/02/17 13:14 RDW 14.2 % (13.2-15.2) 08/02/17 13:14 Plt Count 241 K/mm3 (140-440) 08/02/17 13:14 Lymph % (Auto) 5.1 % (13.4-35.0) L 08/02/17 13:14 Sampson % (Auto) 8.2 % (0.0-7.3) H 08/02/17 13:14 Eos % (Auto) 0.0 % (0.0-4.3) 08/02/17 13:14 Baso % (Auto) 0.1 % (0.0-1.8) 08/02/17 13:14 Lymph # 0.8 K/mm3 (1.2-5.4) L 08/02/17 13:14 Sampson # 1.4 K/mm3 (0.0-0.8) H 08/02/17 13:14 Eos # 0.0 K/mm3 (0.0-0.4) 08/02/17 13:14 Baso # 0.0 K/mm3 (0.0-0.1) 08/02/17 13:14 Seg Neutrophils % 86.6 % (40.0-70.0) H 08/02/17 13:14 Seg Neutrophils # 14.4 K/mm3 (1.8-7.7) H 08/02/17 13:14 D-Dimer 487.01 ng/mlDDU (0-234) H 08/02/17 22:40 Sodium 142 mmol/L (137-145) 08/02/17 13:14 Potassium 4.0 mmol/L (3.6-5.0) 08/02/17 13:14 Chloride 100.5 mmol/L (98-107) 08/02/17 13:14 Carbon Dioxide 24 mmol/L (22-30) 08/02/17 13:14 Anion Gap 22 mmol/L 08/02/17 13:14 BUN 47 mg/dL (7-17) H 08/02/17 13:14 Creatinine 1.6 mg/dL (0.7-1.2) H 08/02/17 13:14 Estimated GFR 32 ml/min 08/02/17 13:14 BUN/Creatinine Ratio 29 % 08/02/17 13:14 Glucose 112 mg/dL (65-100) H 08/02/17 13:14 Calcium 10.1 mg/dL (8.4-10.2) 08/02/17 13:14 Total Creatine Kinase 42 units/L (30-135) 08/02/17 22:40 CK-MB (CK-2) 1.7 ng/mL (0.0-4.0) 08/02/17 22:40 CK-MB (CK-2) Rel Index 4.0 (0-4) 08/02/17 22:40 Troponin T < 0.010 ng/mL (0.00-0.029) 08/02/17 22:40 NT-Pro-B Natriuret Pep 193.3 pg/mL (0-900) 08/02/17 22:40 Urine Color Yellow (Yellow) 08/03/17 01:44 Urine Turbidity Clear (Clear) 08/03/17 01:44 Urine pH 5.0 (5.0-7.0) 08/03/17 01:44 Ur Specific [place] 1.023 (1.003-1.030) 08/03/17 01:44 Urine Protein 100 mg/dl mg/dL (Negative) 08/03/17 01:44 Urine Glucose (UA) Neg mg/dL (Negative) 08/03/17 01:44 Urine Ketones 20 mg/dL (Negative) 08/03/17 01:44 Urine Blood Neg (Negative) 08/03/17 01:44 Urine Nitrite Neg (Negative) 08/03/17 01:44 Urine Bilirubin Neg (Negative) 08/03/17 01:44 Urine Urobilinogen < 2.0 mg/dL (<2.0) 08/03/17 01:44 Ur Leukocyte Esterase Tr (Negative) 08/03/17 01:44 Urine WBC (Auto) 21.0 /HPF (0.0-6.0) H 08/03/17 01:44 Urine RBC (Auto) 3.0 /HPF (0.0-6.0) 08/03/17 01:44 U Epithel Cells (Auto) < 1.0 /HPF (0-13.0) 08/03/17 01:44 Hyaline Casts 18 /LPF 08/03/17 01:44 Urine Mucus Few /HPF 08/03/17 01:44 - Imaging and Cardiology Abdominal x-ray: image reviewed (unremarkable ) Assessment and Plan Assessment and plan: Patient is a 66 years old female with past medical history of hypertension and arthritis, who presents to emergency department for chief complaints of chest pain, cough and sore throat. She states that the pain began 4 days ago intermittent retrosternal chest pain with inspiration, coughing and sore throat. Chest Pain We will admit to telemetry floor. Most likely due to upper respiratory infection PE rule out negative VQ scan . EKG normal sinus rhythm no ST elevation or T-wave inversion. Negative cardiac enzyme X3 Start on aspirin/ Lipitor Nitroglycerin when necessary Morphine ordered for pain Stress test ordered. Acute renal failure/vasomotor nephropathy IV fluid Hydration if renal function not improve with fluid we will consider nephrology Repeat BMP Sepsis due to Urinary tract infection Blood cultures and Urine collected prior to antibiotic Initiated empiric IV Rocephin IV fluid hydration Hypertension Resume home antihypertensive medication IV hydralazine for SBP>160 Closely monitor blood pressure Upper respiratory infection Negative strep throat Sore throat Given Cepacol IV antibiotic Supportive care Elevated D-dimer VQ scan no evidence of PE We will Obtain LE doppler DVT prophylaxis Lovenox Advance Directives: Yes VTE prophylaxis?: Chemical Contraindication Mechanical VTE Prophylaxis: Treatment Not Indicated Plan of care discussed with patient/family: Yes <INOCENCIA GALEANO R - Last Filed: 08/03/17 15:29> History of Present Illness Date of admission: 08/03/17 08:12 Medications and Allergies Active Meds: Active Medications Aspirin (Aspirin) 325 mg PO QDAY [facility] Atorvastatin Calcium (Lipitor) 10 mg PO QHS [facility] Benzocaine/Menthol (Cepacol X Strength) 1 each MM Q2HR PRN PRN Reason: Sore Throat Furosemide (Lasix) 20 mg PO QAM [facility] Heparin Sodium (Porcine) (Heparin) 5,000 unit SUB-Q Q12HR [facility] Ceftriaxone Sodium 1 gm/ (Sodium Chloride) 20 mls @ 20 mls/10 min IV Q24HR [facility] PRN Reason: Protocol Sodium Chloride (Nacl 0.9% 1000 Ml) 1,000 mls @ 100 mls/hr IV DIRECT [facility] Lisinopril (Zestril) 20 mg PO DAILY [facility] Metoprolol Tartrate (Lopressor) 12.5 mg PO BID [facility] Miscellaneous Medication (Cyclosporine [Restasis 0.05%]) 1 drop OP BID [facility] Miscellaneous Medication (Fexofenadine/Pseudoephedrine [Savanah-D 12 Hour Tablet ]) 1 each PO DAILY [facility] Miscellaneous Medication (Potassium Gluconate [Potassium Gluconate]) 500 mg PO DAILY [facility] Pantoprazole Sodium (Protonix) 40 mg PO QDAY [facility] Ranolazine (Ranexa Er) 500 mg PO BID [facility] Exam - Constitutional Vitals: Temp Pulse Resp BP Pulse Ox 98.3 F 83 20 140/59 93 08/03/17 14:56 08/03/17 14:40 08/03/17 14:40 08/03/17 14:40 08/03/17 14:40 Results - Labs CBC & Chem 7: 08/02/17 13:14 08/02/17 13:14 Labs: Laboratory Last Values WBC 16.6 K/mm3 (4.5-11.0) H 08/02/17 13:14 RBC 4.09 M/mm3 (3.65-5.03) 08/02/17 13:14 Hgb 12.4 gm/dl (10.1-14.3) 08/02/17 13:14 Hct 37.9 % (30.3-42.9) 08/02/17 13:14 MCV 93 fl (79-97) 08/02/17 13:14 MCH 30 pg (28-32) 08/02/17 13:14 MCHC 33 % (30-34) 08/02/17 13:14 RDW 14.2 % (13.2-15.2) 08/02/17 13:14 Plt Count 241 K/mm3 (140-440) 08/02/17 13:14 Lymph % (Auto) 5.1 % (13.4-35.0) L 08/02/17 13:14 Sampson % (Auto) 8.2 % (0.0-7.3) H 08/02/17 13:14 Eos % (Auto) 0.0 % (0.0-4.3) 08/02/17 13:14 Baso % (Auto) 0.1 % (0.0-1.8) 08/02/17 13:14 Lymph # 0.8 K/mm3 (1.2-5.4) L 08/02/17 13:14 Sampson # 1.4 K/mm3 (0.0-0.8) H 08/02/17 13:14 Eos # 0.0 K/mm3 (0.0-0.4) 08/02/17 13:14 Baso # 0.0 K/mm3 (0.0-0.1) 08/02/17 13:14 Seg Neutrophils % 86.6 % (40.0-70.0) H 08/02/17 13:14 Seg Neutrophils # 14.4 K/mm3 (1.8-7.7) H 08/02/17 13:14 D-Dimer 487.01 ng/mlDDU (0-234) H 08/02/17 22:40 Sodium 142 mmol/L (137-145) 08/02/17 13:14 Potassium 4.0 mmol/L (3.6-5.0) 08/02/17 13:14 Chloride 100.5 mmol/L (98-107) 08/02/17 13:14 Carbon Dioxide 24 mmol/L (22-30) 08/02/17 13:14 Anion Gap 22 mmol/L 08/02/17 13:14 BUN 47 mg/dL (7-17) H 08/02/17 13:14 Creatinine 1.6 mg/dL (0.7-1.2) H 08/02/17 13:14 Estimated GFR 32 ml/min 08/02/17 13:14 BUN/Creatinine Ratio 29 % 08/02/17 13:14 Glucose 112 mg/dL (65-100) H 08/02/17 13:14 Calcium 10.1 mg/dL (8.4-10.2) 08/02/17 13:14 Total Creatine Kinase 42 units/L (30-135) 08/02/17 22:40 CK-MB (CK-2) 1.7 ng/mL (0.0-4.0) 08/02/17 22:40 CK-MB (CK-2) Rel Index 4.0 (0-4) 08/02/17 22:40 Troponin T < 0.010 ng/mL (0.00-0.029) 08/02/17 22:40 NT-Pro-B Natriuret Pep 193.3 pg/mL (0-900) 08/02/17 22:40 Urine Color Yellow (Yellow) 08/03/17 01:44 Urine Turbidity Clear (Clear) 08/03/17 01:44 Urine pH 5.0 (5.0-7.0) 08/03/17 01:44 Ur Specific [place] 1.023 (1.003-1.030) 08/03/17 01:44 Urine Protein 100 mg/dl mg/dL (Negative) 08/03/17 01:44 Urine Glucose (UA) Neg mg/dL (Negative) 08/03/17 01:44 Urine Ketones 20 mg/dL (Negative) 08/03/17 01:44 Urine Blood Neg (Negative) 08/03/17 01:44 Urine Nitrite Neg (Negative) 08/03/17 01:44 Urine Bilirubin Neg (Negative) 08/03/17 01:44 Urine Urobilinogen < 2.0 mg/dL (<2.0) 08/03/17 01:44 Ur Leukocyte Esterase Tr (Negative) 08/03/17 01:44 Urine WBC (Auto) 21.0 /HPF (0.0-6.0) H 08/03/17 01:44 Urine RBC (Auto) 3.0 /HPF (0.0-6.0) 08/03/17 01:44 U Epithel Cells (Auto) < 1.0 /HPF (0-13.0) 08/03/17 01:44 Hyaline Casts 18 /LPF 08/03/17 01:44 Urine Mucus Few /HPF 08/03/17 01:44 Assessment and Plan Assessment and plan: I saw and evaluated the patient. I agree with the findings and the plan of care as documented in the Nurse Practitioner's~note, with the following corrections and additions.
[2017-08-03] MEDS: TYLENOL PO PRN (17:55)
[2017-08-03] MEDS: LOPRESSOR PO SCH (21:41)
[2017-08-03] MEDS: RANEXA ER PO SCH (21:41)
[2017-08-03] MEDS: NACL 0.9% 1000 ML 1,000 ML IV SCH (21:42)
[2017-08-03] MEDS ORDERED: NON-FORMULARY (Cyclosporine [Restasis 0.05%] 1 DROP) OP SCH (22:00)
[2017-08-04 09:05] LABS: Hematocrit 31.6 % (30.3-42.9); Hemoglobin 10.9 gm/dl (10.1-14.3); Mean Corpuscular HGB Conc 34 % (30-34); Mean Corpuscular Hemoglobin 32 pg (28-32); Mean Corpuscular Volume 94 fl (79-97); Platelet Count 203 K/mm3 (140-440); Red Blood Count 3.38 M/mm3 (3.65-5.03); Red Cell Distribution Width 13.9 % (13.2-15.2); White Blood Count 8.4 K/mm3 (4.5-11.0)
[2017-08-04 09:22] LABS: Anion Gap 14 mmol/L; BUN/Creatinine Ratio 40; Blood Urea Nitrogen 24 mg/dL (7-17); Carbon Dioxide 26 mmol/L (22-30); Chloride 103.6 mmol/L (98-107); Glucose 94 mg/dL (65-100); Potassium 3.7 mmol/L (3.6-5.0); Sodium 140 mmol/L (137-145)
[2017-08-04] MEDS ORDERED: NON-FORMULARY (Multivit-Min/Iron/Folic/Lutein [Centrum Silver Women Tablet] 1 EACH) PO SCH (10:00)
[2017-08-04] MEDS ORDERED: POTASSIUM GLUCONATE 500 MG PO SCH (10:00)
[2017-08-04] MEDS ORDERED: FEXOFENADINE PO SCH (10:00)
[2017-08-04] MEDS ORDERED: PSEUDOEPHEDRINE PO SCH (10:00)
[2017-08-04] MEDS ORDERED: LASIX PO SCH (10:00)
[2017-08-04] MEDS: NACL 0.9% 1000 ML 1,000 ML IV SCH (10:56)
[2017-08-04] MEDS: HEPARIN SUB-Q SCH ×2 (10:57→21:50)
[2017-08-04] MEDS: ZESTRIL PO SCH (10:58)
[2017-08-04] MEDS: ASPIRIN PO SCH (10:58)
[2017-08-04] MEDS: PROTONIX PO SCH (10:58)
[2017-08-04] MEDS: RANEXA ER PO SCH ×2 (10:58→21:47)
[2017-08-04] MEDS: LOPRESSOR PO SCH ×2 (10:59→21:47)
[2017-08-04] MEDS: LASIX PO SCH (10:59)
[2017-08-04] MEDS: TYLENOL PO PRN ×2 (10:59→20:09)
[2017-08-04] MEDS: cefTRIAXone 1 GM in NACL 0.9% 20 ML IV SCH (11:09)
--- NOTE | 2017-08-04 15:06 | Progress Note ---
Assessment and Plan Assessment and plan: Patient is a 66 years old female with past medical history of hypertension and arthritis, who presents to emergency department for chief complaints of chest pain, cough and sore throat. She states that the pain began 4 days ago intermittent retrosternal chest pain with inspiration, coughing and sore throat. Chest Pain We will admit to telemetry floor. Most likely due to upper respiratory infection PE rule out negative VQ scan . EKG normal sinus rhythm no ST elevation or T-wave inversion. Negative cardiac enzyme X3 Start on aspirin/ Lipitor Nitroglycerin when necessary Morphine ordered for pain Stress test ordered. Acute renal failure/vasomotor nephropathy IV fluid Hydration improved renal function, now normal 1.6 to 0.6 Sepsis due to Urinary tract infection Blood cultures and Urine collected prior to antibiotic Initiated empiric IV Rocephin IV fluid hydration Hypertension Resume home antihypertensive medication IV hydralazine for SBP>160 Closely monitor blood pressure Upper respiratory infection Negative strep throat Sore throat Given Cepacol IV antibiotic Supportive care Elevated D-dimer VQ scan no evidence of PE DVT prophylaxis Lovenox stress test delayed due to v/q scan, History Interval history: Follow up cp which has improved. No sob, she wants to go home. Hospitalist Physical - Physical exam Narrative exam: gen: wdwn nad a/o 3 heent: eomi, op clear cvs: rrr normal s1s2 lungs/resp: cta b abd: soft ntnd gbs msk: from x 4 ext: no c/c/e neuro: cn 2-12 grossly intact - Constitutional Vitals: Temp Pulse Resp BP Pulse Ox 98.2 F 73 18 157/71 96 08/04/17 04:19 08/04/17 10:59 08/04/17 04:19 08/04/17 10:59 08/04/17 11:35 General appearance: Present: no acute distress Results - Labs CBC & Chem 7: 08/04/17 08:50 08/04/17 08:50 Labs: Laboratory Last Values WBC 8.4 K/mm3 (4.5-11.0) 08/04/17 08:50 RBC 3.38 M/mm3 (3.65-5.03) L 08/04/17 08:50 Hgb 10.9 gm/dl (10.1-14.3) 08/04/17 08:50 Hct 31.6 % (30.3-42.9) D 08/04/17 08:50 MCV 94 fl (79-97) 08/04/17 08:50 MCH 32 pg (28-32) 08/04/17 08:50 MCHC 34 % (30-34) 08/04/17 08:50 RDW 13.9 % (13.2-15.2) 08/04/17 08:50 Plt Count 203 K/mm3 (140-440) 08/04/17 08:50 Lymph % (Auto) 5.1 % (13.4-35.0) L 08/02/17 13:14 [place] % (Auto) 8.2 % (0.0-7.3) H 08/02/17 13:14 Eos % (Auto) 0.0 % (0.0-4.3) 08/02/17 13:14 Baso % (Auto) 0.1 % (0.0-1.8) 08/02/17 13:14 Lymph # 0.8 K/mm3 (1.2-5.4) L 08/02/17 13:14 [place] # 1.4 K/mm3 (0.0-0.8) H 08/02/17 13:14 Eos # 0.0 K/mm3 (0.0-0.4) 08/02/17 13:14 Baso # 0.0 K/mm3 (0.0-0.1) 08/02/17 13:14 Seg Neutrophils % 86.6 % (40.0-70.0) H 08/02/17 13:14 Seg Neutrophils # 14.4 K/mm3 (1.8-7.7) H 08/02/17 13:14 D-Dimer 487.01 ng/mlDDU (0-234) H 08/02/17 22:40 Sodium 140 mmol/L (137-145) 08/04/17 08:50 Potassium 3.7 mmol/L (3.6-5.0) 08/04/17 08:50 Chloride 103.6 mmol/L (98-107) 08/04/17 08:50 Carbon Dioxide 26 mmol/L (22-30) 08/04/17 08:50 Anion Gap 14 mmol/L 08/04/17 08:50 BUN 24 mg/dL (7-17) H 08/04/17 08:50 Creatinine 0.6 mg/dL (0.7-1.2) L D 08/04/17 08:50 Estimated GFR > 60 ml/min 08/04/17 08:50 BUN/Creatinine Ratio 40 % 08/04/17 08:50 Glucose 94 mg/dL (65-100) 08/04/17 08:50 Calcium 9.0 mg/dL (8.4-10.2) 08/04/17 08:50 Total Creatine Kinase 42 units/L (30-135) 08/02/17 22:40 CK-MB (CK-2) 1.7 ng/mL (0.0-4.0) 08/02/17 22:40 CK-MB (CK-2) Rel Index 4.0 (0-4) 08/02/17 22:40 Troponin T < 0.010 ng/mL (0.00-0.029) 08/02/17 22:40 NT-Pro-B Natriuret Pep 193.3 pg/mL (0-900) 08/02/17 22:40 Urine Color Yellow (Yellow) 08/03/17 01:44 Urine Turbidity Clear (Clear) 08/03/17 01:44 Urine pH 5.0 (5.0-7.0) 08/03/17 01:44 Ur Specific [place] 1.023 (1.003-1.030) 08/03/17 01:44 Urine Protein 100 mg/dl mg/dL (Negative) 08/03/17 01:44 Urine Glucose (UA) Neg mg/dL (Negative) 08/03/17 01:44 Urine Ketones 20 mg/dL (Negative) 08/03/17 01:44 Urine Blood Neg (Negative) 08/03/17 01:44 Urine Nitrite Neg (Negative) 08/03/17 01:44 Urine Bilirubin Neg (Negative) 08/03/17 01:44 Urine Urobilinogen < 2.0 mg/dL (<2.0) 08/03/17 01:44 Ur Leukocyte Esterase Tr (Negative) 08/03/17 01:44 Urine WBC (Auto) 21.0 /HPF (0.0-6.0) H 08/03/17 01:44 Urine RBC (Auto) 3.0 /HPF (0.0-6.0) 08/03/17 01:44 U Epithel Cells (Auto) < 1.0 /HPF (0-13.0) 08/03/17 01:44 Hyaline Casts 18 /LPF 08/03/17 01:44 Urine Mucus Few /HPF 08/03/17 01:44
[2017-08-04] MEDS: CLARITIN-D 24HR PO SCH (15:54)
[2017-08-05] MEDS: NACL 0.9% 1000 ML 1,000 ML IV SCH (02:20)
[2017-08-05] MEDS: TYLENOL PO PRN (02:20)
[2017-08-05] MEDS ORDERED: LEXISCAN IV ONE (08:17)
--- NOTE | 2017-08-05 09:46 | Treadmill Report ---
LEXISCAN STRESS TEST REASON FOR STUDY: Chest pain. STRESS TEST PROTOCOL: The patient received 0.4 mg of Lexiscan intravenously over 10 seconds. Technetium-99m tetrofosmin was subsequently injected. Baseline EKG, normal sinus rhythm with incomplete right bundle-branch block. Lexiscan EKG, no diagnostic ischemic changes. No chest pain. No arrhythmias. IMPRESSION: Electrocardiographically negative stress test. Nuclear imaging report to follow. JOB# [id number] AGO/NTS
--- NOTE | 2017-08-05 11:08 | Cat Scan Report ---
CT HEAD WITHOUT CONTRAST: HISTORY: Head trauma, pain. TECHNIQUE: Sequential 2.5mm CT images. COMPARISON: none. FINDINGS: Cerebral Parenchyma: Within normal limits. Cerebellum: Surgical changes in the left side of the posterior fossa are noted, correlate with history. No acute process noted. Brainstem: Within normal limits. Ventricles: Normal. Sella: Normal. Extra-axial spaces: Normal. Basal Cisterns: Normal. Intracranial Hemorrhage: None. Midline Shift: None. Calvarium: Normal. Sinuses: Normal. Mastoid Air Cells: Normal. Visualized Orbits: Normal. IMPRESSION: Cranial CT scan within normal limits.
--- NOTE | 2017-08-05 11:09 | Cat Scan Report ---
CT SCAN OF THE CERVICAL SPINE: HISTORY: Fall, trauma. TECHNIQUE: Contiguous 1.25 mm axial images of the cervical spine were obtained. Sagittal and coronal reformatted images. FINDINGS: There is normal alignment of the cervical spine. The body, pedicles and posterior ligaments are intact. No evidence of fracture or subluxation is seen. Moderate degenerative changes are identified at C5-6 and C6-7. The spinal canal appears normal. The prevertebral soft tissues appear normal. IMPRESSION: Cervical spondylosis. No acute process is noted.
[2017-08-05] MEDS: LASIX PO SCH (11:17)
[2017-08-05] MEDS: CLARITIN-D 24HR PO SCH (11:17)
[2017-08-05] MEDS: LOPRESSOR PO SCH (11:18)
[2017-08-05] MEDS: RANEXA ER PO SCH (11:19)
[2017-08-05] MEDS: ASPIRIN PO SCH (11:19)
[2017-08-05] MEDS: PROTONIX PO SCH (11:19)
[2017-08-05] MEDS: ZESTRIL PO SCH (11:20)
[2017-08-05] MEDS: HEPARIN SUB-Q SCH (11:20)
[2017-08-05] MEDS: cefTRIAXone 1 GM in NACL 0.9% 20 ML IV SCH (11:38)
--- NOTE | 2017-08-05 13:46 | Discharge Summary ---
Providers - Providers Date of Admission: 08/03/17 08:12 Date of discharge: 08/05/17 Attending physician: INOCENCIA GALEANO 08/03/17 23:13 Speech Therapy Evaluation and Treat [CONS] Routine Reason For Exam: trouble swallowing Primary care physician: UNIT RECEPTIONIST Hospitalization Condition: Stable Hospital course: Patient is a 66 years old female with past medical history of hypertension and arthritis, who presents to emergency department for chief complaints of chest pain, cough and sore throat. She states that the pain began 4 days ago intermittent retrosternal chest pain with inspiration, coughing and sore throat. Chest Pain We will admit to telemetry floor. Most likely due to upper respiratory infection PE rule out negative VQ scan . EKG normal sinus rhythm no ST elevation or T-wave inversion. Negative cardiac enzyme X3 Start on aspirin/ Lipitor Nitroglycerin when necessary Morphine ordered for pain Stress test ordered. Acute renal failure/vasomotor nephropathy IV fluid Hydration improved renal function, now normal 1.6 to 0.6 Sepsis due to Urinary tract infection Blood cultures and Urine collected prior to antibiotic Initiated empiric IV Rocephin IV fluid hydration Hypertension Resume home antihypertensive medication IV hydralazine for SBP>160 Closely monitor blood pressure Upper respiratory infection Negative strep throat Sore throat Given Cepacol IV antibiotic Supportive care Elevated D-dimer VQ scan no evidence of PE DVT prophylaxis Lovenox stress test delayed due to v/q scan, pt c/o neck pains, she gives a history of mechanical fall at home and hitting her head on the left side then blacking out. CT head and c spine reported as NAF Disposition: DC-01 TO HOME OR SELFCARE Time spent for discharge: 36 min Core Measure Documentation - Palliative Care Palliative Care/ Comfort Measures: Not Applicable - Core Measures Any of the following diagnoses?: none - VTE Discharge Requirements Deep Vein Thrombosis/Pulmonary Embolism Present on Admission: No Has pt received <5 days of overlap therapy or INR<2.0: No Anticoagulant overlap therapy prescribed at discharge: No Contraindication No Overlap Therapy order at DC: Not Indicated Exam - Physical Exam Narrative exam: gen: wdwn nad a/o 3 heent: eomi, op clear cvs: rrr normal s1s2 lungs/resp: cta b abd: soft ntnd gbs msk: from x 4 ext: no c/c/e neuro: cn 2-12 grossly intact - Constitutional Vitals: Temp Pulse Resp BP Pulse Ox 97.6 F 72 18 160/69 95 08/05/17 11:29 08/05/17 11:29 08/05/17 11:29 08/05/17 11:29 08/05/17 11:29 Plan Activity: other (no strenous activity until cleared by pcp) Diet: low salt Follow up with: PRIMARY CARE, [Primary Care Provider] - 3-5 Days Prescriptions: Ciprofloxacin HCl [Ciprofloxacin TAB] 250 mg PO BID #5 day
[2017-08-05 17:26] VITALS: BP 103/73
--- NOTE | 2017-08-06 00:20 | Treadmill Report ---
REASON FOR STUDY: Chest pain. IMAGING PROTOCOL: The patient received 10 mCi of Technetium 99 Tetrofosmin for rest imaging, and 28 mCi of technetium-99m Tetrofosmin for stress imaging. Imaging for all procedures was completed 30-90 minutes following the initial injection of Technetium 99m Tetrofosmin. SPECT imaging in the 180 degree arc was performed in the right anterior oblique projection. Computerized reconstruction of the images was performed for analysis. NUCLEAR IMAGING RESULTS: Normal left ventricular cavity size with no change from stress to rest. Distribution of radionuclide within the left ventricle revealed a small area of photo-induction involving the apex. The degree of photo-induction is moderate. Rest imaging does not show any significant improvement in this defect. Gated SPECT imaging revealed normal global LV systolic function with no significant wall motion abnormalities. The visually estimated left ventricular ejection fraction is 70%. IMPRESSION: Small fixed apical defect. Normal global LV systolic function with no significant wall motion abnormalities. Calculated ejection fraction of 70%. 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 However, the defect noted in this patient may also be artifactual. No evidence of significant stress-induced ischemia. JOB# [id number] EDMUND/NTS
== END 2017-08-05 17:39 | disposition home or self-care (01) | DRG 871 ==
LOC: ED 12:48 → 4A 08-03 08:12
PROVIDERS: ADMIT Internal Medicine; ATTEND Internal Medicine
DX: A41.9 Sepsis, unspecified organism (principal); N17.0 Acute kidney failure with tubular necrosis; N39.0 Urinary tract infection, site not specified; J06.9 Acute upper respiratory infection, unspecified; Z79.82 Long term (current) use of aspirin; Z79.899 Other long term (current) drug therapy; I10 Essential (primary) hypertension; Z82.49 Family history of ischemic heart disease and other diseases of the circulatory system; M19.90 Unspecified osteoarthritis, unspecified site
CPT/HCPCS: 36415; 70450; 71020; 72125; 78452; 78582; 80048; 81001; 82550; 82553; 83880; 84484; 85025; 85027; 85379; 87040; 87086; 87116; 87400; 87430; 93005; 93010; 93017; 96361; 96374; 96375; A9270-GY; A9502; A9540; A9558; G8996-GN; G8997-GN; J0696; J1644; J1885; J2785; J7030